=== PATIENT | female | born 1960 | race American Indian/Alaskan Native ===

== ENCOUNTER 2017-01-11 17:04 | Emergency (ER) | payer MEDICAID, OTHER ==
[2017-01-11 17:22] VITALS: BMI 38.4
[2017-01-11 17:24] VITALS: BP 184/102; PULSE 78; RESP 18; TEMP 98.1; O2SAT 100
--- NOTE | 2017-01-11 18:18 | C.PDOC ---
History Of Present Illness 57 year old patient presents to the ED requesting a refill of her Ativan. Patient is a drug seeker and is a chronic drug abuser. [facility] was reviewed which shows 36 prescriptions from 13 providers. Including Dilaudid 2 mg x 90 tabs rx monthly by Dr. Hyun Valenzuela. Patient denies all other complaints. Time Seen by Provider: 01/11/17 18:06 Chief Complaint (Nursing): Med Refill History Per: Patient History/Exam Limitations: no limitations Onset/Duration Of Symptoms: Other Current Symptoms Are (Timing): Still Present Suicide/Self Injury Attempted (Context): None Modifying Factor(s): None Severity: None Pain Scale Rating Of: 0 Recent travel outside of the [place]: No Additional History Per: Prior Records, Other ([facility]) Past Medical History Reviewed: Historical Data, Nursing Documentation, Vital Signs Vital Signs: Last Vital Signs Temp 98.1 F 01/11/17 17:23 Pulse 78 01/11/17 17:23 Resp 18 01/11/17 17:23 BP 184/102 H 01/11/17 17:23 Pulse Ox 100 01/11/17 21:15 - Medical History PMH: Anemia, Anxiety, Arthritis, Asthma, Bronchitis, CAD, CHF, Crohn's Disease, Depression, Deep Vein Thrombosis, Gastritis, Gastrointestinal Ulcer, Gall Bladder Disease, HTN, Hypercholesterolemia, Hyperlipidemia, Malignancy (Colon), Migraine, Peripheral Edema, Pulmonary Embolism, Seizures Surgical History: Cholecystectomy - [facility] Procedures CENTRAL VENOUS CATHETER PLACEMENT WITH GUIDANCE (04/08/15) CORONAR ARTERIOGR-2 CATH (12/28/12) DPT ADMINISTRATION (04/26/13) DRESSING OF WOUND NEC (01/26/04) IMMOBILIZ/WOUND ATTN NEC (08/05/12) INJECT/INFUSE ELECTROLYT (03/23/14) INJECT/INFUSE NEC (04/29/15) INSERTION OF VAD INTO L UP LEG SUBCU/FASCIA, PERC APPROACH (09/01/15) LEFT HEART CARDIAC CATH (12/28/12) LT HEART ANGIOCARDIOGRAM (12/28/12) MAGNETIC RESONANCE IMAGING OF BRAIN AND BRAIN STEM (12/12/99) NEBULIZER THERAPY (01/26/04) OTHER MISC PROCEDURE (04/28/00) PSYCHIA INTERV/EVAL NEC (07/03/14) TETANUS TOXOID ADMINIST (01/26/04) VENOUS CATHETERIZATION NEC (11/05/14) VENOUS PUNCTURE NEC (11/15/14) Family History: States: [place], CAD - Social History Hx Tobacco Use: Yes Hx Alcohol Use: No Hx Substance Use: No - Immunization History Hx Tetanus Toxoid Vaccination: Yes Hx Influenza Vaccination: Yes Hx Pneumococcal Vaccination: Yes Review Of Systems Except As Marked, All Systems Reviewed And Found Negative. Constitutional: Negative for: Fever Gastrointestinal: Negative for: Nausea, Vomiting Psych: Negative for: Suicidal ideation, Other (homicidal ideation) Physical Exam - Physical Exam Appears: Other (argumentative, foul mouth) Skin: Warm, Dry Head: Atraumatic, Normacephalic Neck: Normal ROM, Supple Chest: Symmetrical Cardiovascular: Rhythm Regular Respiratory: Normal Breath Sounds, No Rales, No Rhonchi, No Wheezing Gastrointestinal/Abdominal: Soft, No Tenderness Back: Normal Inspection, No CVA Tenderness Extremity: Normal ROM Neurological/Psych: Oriented x3 Gait: Steady ED Course And Treatment O2 Sat by Pulse Oximetry: 100 (room air) Pulse Ox Interpretation: Normal Progress Note: Patient was escorted out by police. Medical Decision Making Medical Decision Making: drug seeking behavior. ID [employer] shows 13 prescribers for 36 prescriptions. Unable to refill chronic controlled substances- explained extensive h/o same. Disposition Doctor Will See Patient In The: Office Counseled Patient/Family Regarding: Studies Performed, Diagnosis - Disposition Referrals: Rowan Pugh [Medical Doctor] - Disposition: HOME/ ROUTINE Disposition Time: 18:17 Condition: GOOD Additional Instructions: seek refills for your controlled substances from your PMD or chronic psych/pain specialists the ED may NOT be used to refill controlled substances Instructions: Anxiety (ED) - Clinical Impression Clinical Impression: Drug-seeking behavior - Scribe Statement The provider has reviewed the documentation as recorded by the Scribe Marie Padilla Provider Attestation: All medical record entries made by the Scribe were at my direction and personally dictated by me. I have reviewed the chart and agree that the record accurately reflects my personal performance of the history, physical exam, medical decision making, and the department course for this patient. I have also personally directed, reviewed, and agree with the discharge instructions and disposition.
--- NOTE | 2017-01-16 21:25 | CARD ---
APPROVED REPORT EKG Measurement Heart [id number] <Conclusion> Normal sinus rhythm with sinus arrhythmia Possible Left atrial enlargement ST & T wave abnormality, consider inferior ischemia Abnormal ECG
== END 2017-01-11 19:20 | disposition home or self-care (01) ==
LOC: C.ER 17:04
DX: Z76.5 Malingerer [conscious simulation] (principal)

== ENCOUNTER 2017-08-14 23:50 | Emergency (ER) | payer MEDICAID, OTHER ==
[2017-08-14 23:51] VITALS: BMI 40.2
[2017-08-15 00:11] VITALS: BP 124/79; PULSE 87; RESP 18; TEMP 97.6; O2SAT 99
--- NOTE | 2017-08-15 00:22 | C.PDOC ---
History Of Present Illness 57 year old female well known to the ED and to the physician treating her presents c/o chest wall discomfort. Patient has over 450 visit to the ED, many of them for CP. Patient has prior Hx of anxiety, drug seeking, and substance abuse. Time Seen by Provider: 08/15/17 00:17 Chief Complaint (Nursing): Chest Pain History Per: Patient History/Exam Limitations: no limitations Onset/Duration Of Symptoms: Days Current Symptoms Are (Timing): Gone Quality: "Pain" Modifying Factors: None Exacerbating Factors: None Alleviating Factors: None Recent travel outside of the [place]: No Additional History Per: Patient Past Medical History Reviewed: Historical Data, Nursing Documentation, Vital Signs Vital Signs: Last Vital Signs Temp 97.6 F 08/15/17 00:07 Pulse 87 08/15/17 00:07 Resp 18 08/15/17 00:07 BP 124/79 08/15/17 00:07 Pulse Ox 99 08/15/17 00:22 - Medical History PMH: Anemia, Anxiety, Arthritis, Asthma, Bronchitis, CAD, CHF, Crohn's Disease, Depression, Deep Vein Thrombosis, Gastritis, Gastrointestinal Ulcer, Gall Bladder Disease, HTN, Hypercholesterolemia, Hyperlipidemia, Malignancy (Colon), Migraine, Peripheral Edema, Pulmonary Embolism, Seizures Denies: Chronic Kidney Disease, Sexually Transmitted Disease Surgical History: Cholecystectomy - [facility] Procedures CENTRAL VENOUS CATHETER PLACEMENT WITH GUIDANCE (04/08/15) CORONAR ARTERIOGR-2 CATH (12/28/12) DPT ADMINISTRATION (04/26/13) DRESSING OF WOUND NEC (01/26/04) IMMOBILIZ/WOUND ATTN NEC (08/05/12) INJECT/INFUSE ELECTROLYT (03/23/14) INJECT/INFUSE NEC (04/29/15) INSERTION OF VAD INTO L UP LEG SUBCU/FASCIA, PERC APPROACH (09/01/15) LEFT HEART CARDIAC CATH (12/28/12) LT HEART ANGIOCARDIOGRAM (12/28/12) MAGNETIC RESONANCE IMAGING OF BRAIN AND BRAIN STEM (12/12/99) NEBULIZER THERAPY (01/26/04) OTHER MISC PROCEDURE (04/28/00) PSYCHIA INTERV/EVAL NEC (07/03/14) TETANUS TOXOID ADMINIST (01/26/04) VENOUS CATHETERIZATION NEC (11/05/14) VENOUS PUNCTURE NEC (11/15/14) Family History: States: Unknown Family Hx, [place], CAD - Social History Hx Tobacco Use: Yes Hx Alcohol Use: No Hx Substance Use: Yes - Immunization History Hx Tetanus Toxoid Vaccination: No Hx Influenza Vaccination: Yes Hx Pneumococcal Vaccination: Yes Review Of Systems Constitutional: Negative for: Fever, Chills Cardiovascular: Positive for: Chest Pain. Negative for: Palpitations Respiratory: Negative for: Cough, Shortness of Breath Gastrointestinal: Negative for: Nausea, Vomiting, Abdominal Pain Genitourinary: Negative for: Dysuria, Hematuria Musculoskeletal: Negative for: Back Pain Skin: Negative for: Rash Neurological: Negative for: Weakness, Numbness Physical Exam - Physical Exam Appears: Non-toxic, No Acute Distress Skin: Normal Color, Warm, Dry Head: Atraumatic, Normacephalic Nose: No Discharge, No Deformity Oral Mucosa: Moist Neck: Normal ROM, Supple Chest: Symmetrical, Tenderness (B/L parasternal area) Cardiovascular: Rhythm Regular, No Murmur Respiratory: Normal Breath Sounds, No Rales, No Rhonchi, No Wheezing Gastrointestinal/Abdominal: Soft, No Tenderness, No Guarding, No Rebound Extremity: Normal ROM, No Pedal Edema, No Calf Tenderness, No Deformity, No Swelling Neurological/Psych: Oriented x3 Gait: Steady ED Course And Treatment ECG: Interpreted By Me ECG Rhythm: Sinus Rhythm ECG Interpretation: Normal Rate From EC O2 Sat by Pulse Oximetry: 99 Pulse Ox Interpretation: Normal Medical Decision Making Medical Decision Making: Patient was not given any NSAIDS because she states being allergic to pain medications except for narcotics. digitally reproducable parasternal discomfort, no rash normal EKG h/o drug seeking, anxiety, and agression with staff 5th visit to ED this month, many prior evals. costochondritis/malingering/drug seeking. Disposition Doctor Will See Patient In The: Office Counseled Patient/Family Regarding: Studies Performed, Diagnosis - Disposition Referrals: Germain Walsh MD [Medical Doctor] - Disposition: HOME/ ROUTINE Disposition Time: 00:22 Condition: GOOD Additional Instructions: ice packs to the chest wall 1/2 hour as needed no heavy lifting for 1 week Follow-up with Dr. Walsh as needed. Instructions: Costochondritis (ED) Forms: [employer] (Georgian) - Clinical Impression Clinical Impression: Chest wall discomfort - Scribe Statement The provider has reviewed the documentation as recorded by the Scribe Uche Phillipjia All medical record entries made by the Scribe were at my direction and personally dictated by me. I have reviewed the chart and agree that the record accurately reflects my personal performance of the history, physical exam, medical decision making, and the department course for this patient. I have also personally directed, reviewed, and agree with the discharge instructions and disposition.
--- NOTE | 2017-08-16 13:45 | CARD ---
APPROVED REPORT EKG Measurement Heart [id number] <Conclusion> Normal sinus rhythm Possible Left atrial enlargement T wave abnormality, consider inferior ischemia Abnormal ECG
== END 2017-08-15 00:40 | disposition home or self-care (01) ==
LOC: C.ER 23:50
DX: R07.89 Other chest pain (principal)

== ENCOUNTER 2017-10-19 04:55 | Emergency (ER) | payer OTHER ==
[2017-10-19 04:56] VITALS: BMI 31.1
--- NOTE | 2017-10-19 05:16 | C.PDOC ---
History Of Present Illness 57 year old female presents to the ER with a complaint of chest pain, neck pain , and arm pain. Patient was recently seen at [facility] for the same complaint and has had over 400 ER visits with the same vague complaints. She recently had a negative cardiac cath and as per EMS was just discharged from [facility] for the same complaints. Denies other associated symptoms. Chief Complaint (Nursing): Anxiety History Per: Patient History/Exam Limitations: no limitations Onset/Duration Of Symptoms: Hrs Current Symptoms Are (Timing): Still Present Recent travel outside of the [place]: No Past Medical History Reviewed: Historical Data, Nursing Documentation, Vital Signs Vital Signs: Last Vital Signs Temp 97.7 F 10/19/17 05:08 Pulse 93 H 10/19/17 05:08 Resp 20 10/19/17 05:08 BP 159/94 H 10/19/17 05:08 Pulse Ox 97 10/19/17 05:16 - Medical History PMH: Anemia, Anxiety, Arthritis, Asthma, Bronchitis, CAD, CHF, Crohn's Disease, Depression, Deep Vein Thrombosis, Gastritis, Gastrointestinal Ulcer, Gall Bladder Disease, HTN, Hypercholesterolemia, Hyperlipidemia, Malignancy (Colon), Migraine, Peripheral Edema, Pulmonary Embolism, Seizures Surgical History: Cholecystectomy - [facility] Procedures CENTRAL VENOUS CATHETER PLACEMENT WITH GUIDANCE (04/08/15) CORONAR ARTERIOGR-2 CATH (12/28/12) DPT ADMINISTRATION (04/26/13) DRESSING OF WOUND NEC (01/26/04) IMMOBILIZ/WOUND ATTN NEC (08/05/12) INJECT/INFUSE ELECTROLYT (03/23/14) INJECT/INFUSE NEC (04/29/15) INSERTION OF VAD INTO L UP LEG SUBCU/FASCIA, PERC APPROACH (09/01/15) LEFT HEART CARDIAC CATH (12/28/12) LT HEART ANGIOCARDIOGRAM (12/28/12) MAGNETIC RESONANCE IMAGING OF BRAIN AND BRAIN STEM (12/12/99) NEBULIZER THERAPY (01/26/04) OTHER MISC PROCEDURE (04/28/00) PSYCHIA INTERV/EVAL NEC (07/03/14) TETANUS TOXOID ADMINIST (01/26/04) VENOUS CATHETERIZATION NEC (11/05/14) VENOUS PUNCTURE NEC (11/15/14) Family History: States: [place], CAD - Social History Hx Tobacco Use: Yes Hx Alcohol Use: No Hx Substance Use: Yes - Immunization History Hx Tetanus Toxoid Vaccination: No Hx Influenza Vaccination: Yes Hx Pneumococcal Vaccination: Yes Review Of Systems Except As Marked, All Systems Reviewed And Found Negative. Constitutional: Negative for: Fever, Chills Cardiovascular: Positive for: Chest Pain Respiratory: Negative for: Cough, Shortness of Breath Gastrointestinal: Negative for: Nausea, Vomiting Musculoskeletal: Positive for: Neck Pain, Arm Pain Physical Exam - Physical Exam Appears: Non-toxic, No Acute Distress, Other (Crying, verbalizing labial emotions, focused interacting) Skin: Normal Color, Warm, Dry Head: Atraumatic, Normacephalic Eye(s): bilateral: Normal Inspection Oral Mucosa: Moist Chest: Symmetrical, No Tenderness Cardiovascular: Rhythm Regular Respiratory: Normal Breath Sounds, No Accessory Muscle Use Gastrointestinal/Abdominal: Soft, No Tenderness Neurological/Psych: Oriented x3, Normal Speech ED Course And Treatment O2 Sat by Pulse Oximetry: 97 (Room air) Pulse Ox Interpretation: Normal Progress Note: Upon being informed that she will not be receiving ativan, patient immediately stopped crying and walked out of the ER. Disposition Counseled Patient/Family Regarding: Diagnosis, Need For Followup - Disposition Referrals: YOUR,PMD [Other] Disposition: HOME/ ROUTINE Disposition Time: 05:15 Condition: GOOD Instructions: Chronic Pain (DC) Forms: [facility] (Turkish) - Clinical Impression Clinical Impression: Drug-seeking behavior, Chronic chest pain - Scribe Statement The provider has reviewed the documentation as recorded by the Scribe Mamadou Keller All medical record entries made by the Scribe were at my direction and personally dictated by me. I have reviewed the chart and agree that the record accurately reflects my personal performance of the history, physical exam, medical decision making, and the department course for this patient. I have also personally directed, reviewed, and agree with the discharge instructions and disposition.
[2017-10-19 05:18] VITALS: BP 159/94; PULSE 93; RESP 20; TEMP 97.7; O2SAT 97
== END 2017-10-19 05:24 | disposition home or self-care (01) ==
LOC: C.ER 04:55
DX: R07.9 Chest pain, unspecified (principal); Z76.5 Malingerer [conscious simulation]